=== PATIENT | male | born 1995 | race Caucasian/White ===

== ENCOUNTER → 2017-02-07 | Outpatient (CLI) | payer OTHER ==
[~2017-02-07] MED LIST: CONCERTA; EPIN0.3A3 SC; HYDR-757 PO; SULF1TAB35 PO
--- NOTE | 2017-02-07 09:35 | Diagnostic Imaging Report ---
INDICATION: Costovertebral angle tenderness on the right. FINDINGS: Kidneys normal in size, cortical thickness, and echotexture. The right 13.3 cm. The left 12.3 cm. The urinary bladder appeared normal. There is no hydronephrosis. No opaque stone identified and patency of the bilateral ureteral jets confirmed with color Doppler. IMPRESSION: Normal retroperitoneal ultrasound. Dictated by: Dictated on workstation # [id number]
== END ==
LOC: RAD 08:44
PROVIDERS: ATTEND Pediatrics
DX: R10.31 Right lower quadrant pain (principal)
CPT/HCPCS: 76770